=== PATIENT | female | born 1975 | race Caucasian/White ===

== ENCOUNTER 2018-04-20 16:57 | Emergency (ER) | payer MEDICAID, OTHER ==
[2018-04-20 17:24] VITALS: BMI 20.1
[2018-04-20 17:29] VITALS: RESP 18; TEMP 98.1
--- NOTE | 2018-04-20 18:34 | ED PDOC ---
Arrival/HPI - General Chief Complaint: Trauma Time Seen by Provider: 04/20/18 17:28 Historian: Patient - History of Present Illness Narrative History of Present Illness (Text): 04/20/18 18:34 42yo female with history of chronic neck and back pain present with complaint of upper back, left shoulder/wrist and ankle pain s/p trauma this evening. Patient states she fell when she climbed ontop of a chair to grab some thing at 1600 today. States she landed on her left side. States she did not take any pain medication today. Able to ambulate with a cane. Denies LOC, focal weakness, dizziness, urinary/fecal incontinence, saddle anesthesia, nausea, vomiting, headache, any other complaint. Past Medical History - Provider Review Nursing Documentation Reviewed: Yes - Infectious Disease Hx of Infectious Diseases: None - Reproductive Currently : No - Psychiatric Hx Substance Use: No Family/Social History - Physician Review Nursing Documentation Reviewed: Yes Family/Social History: Unknown Family HX Smoking Status: Never Smoked Hx Alcohol Use: No Hx Substance Use: No Allergies/Home Meds Allergies/Adverse Reactions: Allergies No Known Allergies Allergy (Verified 05/02/15 17:56) Home Medications: Home Meds Medication Instructions Recorded Confirmed RX: No Known Home Med 04/20/18 04/20/18 Review of Systems - Physician Review All systems were reviewed & negative as marked: Yes - Review of Systems Constitutional: Normal Eyes: Normal ENT: Normal Respiratory: Normal Cardiovascular: Normal Gastrointestinal: Normal Genitourinary Female: Normal Musculoskeletal: Arthralgias (LEft ankle/wrist/shoudler), Back Pain Skin: Normal Neurological: Normal Endocrine: Normal Hemo/Lymphatic: Normal Psychiatric: Normal Physical Exam Vital Signs Reviewed: Yes Vital Signs Temp Pulse Resp BP Pulse Ox 04/20/18 17:28 98.1 F 73 18 95/60 L 100 Temperature: Afebrile Blood Pressure: Normal Pulse: Regular Respiratory Rate: Normal Appearance: Positive for: Well-Appearing, Non-Toxic, Comfortable Pain Distress: None Mental Status: Positive for: Alert and Oriented X 3 - Systems Exam Head: Present: Atraumatic, Normocephalic Pupils: Present: PERRL Extroacular Muscles: Present: EOMI Conjunctiva: Present: Normal Mouth: Present: Moist Mucous Membranes Neck: Present: Normal Range of Motion Respiratory/Chest: Present: Clear to Auscultation, Good Air Exchange. No: Respiratory Distress, Accessory Muscle Use Cardiovascular: Present: Regular Rate and Rhythm, Normal S1, S2. No: Murmurs Abdomen: No: Tenderness, Distention, Peritoneal Signs Back: Present: Paraspinal Tenderness (LEft sided parathoracic tenderness). No: Midline Tenderness, Pain with Leg Raise Upper Extremity: Present: Normal ROM, NORMAL PULSES, Tenderness (Mild left proximal shoulder tenderness. LEft wrist tenderness), Neurovascularly Intact, Capillary Refill < 2s. No: Cyanosis, Edema, Swelling, Deformity Lower Extremity: Present: NORMAL PULSES, Normal ROM, Tenderness (Left ankle), Neurovascularly Intact. No: Edema, Swelling, Deformity Neurological: Present: GCS=15, CN II-XII Intact, Speech Normal Skin: Present: Warm, Dry, Normal Color. No: Rashes Psychiatric: Present: Alert, Oriented x 3, Normal Insight, Normal Concentration Medical Decision Making ED Course and Treatment: 04/22/18 01:44 PT presented to ED for stated history. she was neurologically intact Thoracic spine/Left shoulder/ankle xray - No acute finding Pt's pain was controlled in ED Result was DW the pt and she was DC home with NSAID and referred to ortho - RAD Interpretation Radiology Orders: 04/20/18 18:23 SHOULDER LEFT [RAD] Stat WRIST, LEFT 3 VIEWS [RAD] Stat 04/20/18 18:24 THORACIC SPINE [DORSAL (THORACIC) SPINE] [RAD] Stat 04/20/18 18:25 ANKLE LEFT 3 VIEWS ROUTINE [RAD] Stat Disposition/Present on Arrival - Present on Arrival Any Indicators Present on Arrival: No History of DVT/PE: No History of Uncontrolled Diabetes: No Urinary Catheter: No History of Decub. Ulcer: No History Surgical Site Infection Following: None - Disposition Have Diagnosis and Disposition been Completed?: Yes Diagnosis: Musculoskeletal pain Disposition: HOME/ ROUTINE Disposition Time: 19:55 Patient Plan: Discharge Condition: STABLE Discharge Instructions (ExitCare): Muscle and Bone Pain (DC) Additional Instructions: Follow up with your doctor Return to Emergency department for any new symptoms Referrals: Kirsty Davidson MD [Primary Care Provider] - Follow up with primary Calvin Rodgers MD [Staff Provider] - Follow up with primary Forms: [employer] (Irish)
[2018-04-20 20:35] VITALS: BP 107/64; PULSE 75; O2SAT 98
--- NOTE | 2018-04-21 10:18 | RAD ---
Date of service: 04/20/2018 PROCEDURE: Radiographs of the Left Shoulder HISTORY: shoulder pain s/p trauma COMPARISON: No prior. FINDINGS: BONES: Normal. No fracture. JOINTS: Normal. Glenohumeral and acromioclavicular joints preserved. No osteoarthritis. SOFT TISSUES: Normal. OTHER FINDINGS: None. IMPRESSION: Normal radiographs of the left shoulder.
--- NOTE | 2018-04-21 10:25 | RAD ---
Date of service: 04/20/2018 HISTORY: back pain s/p trauma COMPARISON: Comparison made with prior MRI of the thoracic spine 01/29/2016. FINDINGS: BONES: Alignment maintained. No fracture. DISC SPACES: Normal. Small marginal anterior osteophytes seen at several levels SOFT TISSUES: Normal. OTHER FINDINGS: None. IMPRESSION: No evidence of acute compression fracture nor retropulsed fragments.
--- NOTE | 2018-04-21 11:30 | RAD ---
Date of service: 04/20/2018 PROCEDURE: Left Ankle Radiographs. HISTORY: Ankle pain s/p trauma COMPARISON: None available. FINDINGS: BONES: Normal. No fracture. JOINTS: Normal. No osteoarthritis. Ankle mortise maintained. Talar dome intact SOFT TISSUES: Normal. OTHER FINDINGS: None. IMPRESSION: Normal left ankle radiographs.
--- NOTE | 2018-04-21 13:01 | RAD ---
Date of service: 04/20/2018 PROCEDURE: Left Wrist Radiographs. HISTORY: Wrist pain following trauma no evidence of acute COMPARISON: None. FINDINGS: BONES: Normal. No fracture. JOINTS: Normal. No dislocation. SOFT TISSUES: Normal. OTHER FINDINGS: None. IMPRESSION: No evidence of acute displaced fracture nor dislocation. If symptoms persist or occult fracture suspected clinically recommend repeat radiographs in 5-10 days as most fractures should become radiographically evident in this timeframe.
== END 2018-04-20 20:33 | disposition home or self-care (01) ==
LOC: ED 16:57
DX: M79.18 Myalgia, other site (principal)
CPT/HCPCS: 72070; 73030; 73110; 73610; 81025; 96372; 99284; J1885

== ENCOUNTER 2018-06-07 10:40 | Outpatient (CLI) | payer MEDICAID | END 2018-06-07 10:41 | disposition home or self-care (01) | LOC: RAD 10:40 | DX: G44.1 Vascular headache, not elsewhere classified (principal); R42 Dizziness and giddiness; G60.9 Hereditary and idiopathic neuropathy, unspecified; G40.909 Epilepsy, unspecified, not intractable, without status epilepticus ==

== ENCOUNTER 2018-06-27 13:51 | Observation (INO) | payer MEDICAID ==
--- NOTE | 2018-06-27 15:26 | ED PDOC ---
Arrival/HPI - General Chief Complaint: Upper Extremity Problem/Injury Time Seen by Provider: 06/27/18 14:05 Historian: Patient - History of Present Illness Narrative History of Present Illness (Text): 42 year old F with pmh of depression, chronic neck and back pain presents with chief complaint of left arm pain. She notes that while sitting in the emergency department she has had LUE weakness and now paralysis. Patient reports paralysis occurred months before and spontaneously resolved. She notes a history of chronic neck issues without previous surgery. Patient denies any trauma, fall or neck injury. Patient denies any fevers, chills, headache, dizziness, chest pain, shortness of breath, dyspnea on exertion, cough, diaphoresis, abdominal pain, nausea, vomiting, diarrhea, back pain, neck pain, or any other complaint. Time/Duration: Prior to Arrival Symptom Onset: Sudden Symptom Course: Unchanged Activities at Onset: Light Context: Home Past Medical History - Provider Review Nursing Documentation Reviewed: Yes - Infectious Disease Hx of Infectious Diseases: None - Psychiatric Hx Substance Use: No - Anesthesia Hx Anesthesia: Yes Hx Anesthesia Reactions: No Hx Malignant Hyperthermia: No Family/Social History - Physician Review Nursing Documentation Reviewed: Yes Family/Social History: Unknown Family HX Smoking Status: Never Smoked Hx Alcohol Use: No Hx Substance Use: No Allergies/Home Meds Allergies/Adverse Reactions: Allergies No Known Allergies Allergy (Verified 05/02/15 17:56) Home Medications: Home Meds Medication Instructions Recorded Confirmed No Known Home Med 04/20/18 04/20/18 Review of Systems - Physician Review All systems were reviewed & negative as marked: Yes - Review of Systems Constitutional: absent: Fevers Eyes: absent: Vision Changes, Photophobia ENT: absent: TMJ Pain, Sore Throat, Rhinorrhea, Epistaxis Respiratory: absent: SOB, Cough Cardiovascular: absent: Chest Pain, Palpitations, Syncope Gastrointestinal: absent: Abdominal Pain, Diarrhea, Nausea, Vomiting Musculoskeletal: absent: Arthralgias, Back Pain, Myalgias Skin: absent: Rash Neurological: absent: Headache, Dizziness Physical Exam Vital Signs Reviewed: Yes Temperature: Afebrile Blood Pressure: Normal Pulse: Regular Respiratory Rate: Normal Appearance: Positive for: Well-Appearing, Non-Toxic Pain Distress: None Mental Status: Positive for: Alert and Oriented X 3 - Systems Exam Head: Present: Atraumatic, Normocephalic Pupils: Present: PERRL. No: Sluggish Extroacular Muscles: Present: EOMI Conjunctiva: Present: Normal Ears: Present: Normal, NORMAL TM. No: Erythema Mouth: Present: Moist Mucous Membranes Pharnyx: Present: Normal. No: ERYTHEMA, EXUDATE Nose (External): Present: Atraumatic Nose (Internal): Present: Normal Inspection Neck: Present: Normal Range of Motion. No: Meningeal Signs, MIDLINE TENDERNESS, Paraspinal Tenderness Respiratory/Chest: Present: Clear to Auscultation, Good Air Exchange. No: Respiratory Distress, Accessory Muscle Use Cardiovascular: Present: Regular Rate and Rhythm, Normal S1, S2. No: Murmurs Abdomen: No: Tenderness, Distention, Peritoneal Signs Back: Present: Normal Inspection. No: CVA Tenderness, Midline Tenderness, Paraspinal Tenderness Upper Extremity: Present: Normal Inspection, Normal ROM, NORMAL PULSES, Neurovascularly Intact, Capillary Refill < 2s, Other (left upper extremity weakness, 3/5. When prompted to move LUE, pt states she is unable to, when raised however pt is able to anti-grav without issue). No: Cyanosis, Edema Lower Extremity: Present: Normal Inspection, NORMAL PULSES. No: Edema, CALF TENDERNESS Neurological: Present: GCS=15, CN II-XII Intact, Speech Normal Skin: Present: Warm, Dry, Normal Color. No: Rashes Psychiatric: Present: Alert, Oriented x 3, Normal Insight, Normal Concentration Medical Decision Making ED Course and Treatment: 06/27/18 15:25 Impression: 42 year old F presents with chief complaint of L arm pain followed by paralysis in the emergency department. NIHSS 1. 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 No fall or trauma. No chest pain. No midline cervical tenderness or paracervical pain. Code stroke called however given sudden onset while in ER. No unilateral LE weakness. No slurred speech. Plan: -- Labs -- CT Head w/o contrast -- Stroke team Consult -- CXR -- Reassess and disposition Prior Visits: Notes and results from previous visits were reviewed. Progress Notes: 06/27/18 15:58 EKG shows NSR at 78 BPM, No STEMI. Interpreted by me. 06/27/18 16:41 Pt noted to be moving L arm in NAD CTH and CT c-spine unremarkable labs largely unremarkable appreciate consult w/ Dr. Toribio: likely MRI C spine, obs for likely tia 06/27/18 17:09 pt in NAD appreciate consult w/ Dr. Rolle: accepted to obs - RAD Interpretation Radiology Orders: 06/27/18 15:20 HEAD W/O (CODE STROKE) [CT] Stat CHEST PORTABLE [RAD] Stat 06/27/18 15:22 CERVICAL SPINE W/O CONTRAST [CT] Stat - Medication Orders Current Medication Orders: Sodium Chloride (Sodium Chloride 0.9%) 1,000 mls @ 100 mls/hr IV .Q10H [facility] NIHSS Scale ([place]) Time Performed: 15:20 - How Severe is the Stoke Baseline Level of Consciousness: 0=Alert LOC to Questions: 0=Both comments correct LOC to commands: 0=Obeys both correctly Best Gaze: 0=Normal Visual: 0=No visual loss Facial: 0=Normal Motor Arm - Left: 1=Drift noted before 10 sec Motor Arm - Right: 0=No drift Motor Leg - Left: 0=No drift Motor Leg - Right: 0=No drift Limb Ataxia: 0=Absent Sensory: 0=Normal Best Language: 0=No aphasia Dysarthia: 0=Normal articulation Extinction & Inattention (Neglect): 0=Normal, no object Score: 1 Risk Level: Minor Stroke Risk - Scribe Statement The provider has reviewed the documentation as recorded by the Dalia Salomon All medical record entries made by the Inocencioibe were at my direction and personally dictated by me. I have reviewed the chart and agree that the record accurately reflects my personal performance of the history, physical exam, medical decision making, and the department course for this patient. I have also personally directed, reviewed, and agree with the discharge instructions and disposition. Disposition/Present on Arrival - Present on Arrival Any Indicators Present on Arrival: No History of DVT/PE: No History of Uncontrolled Diabetes: No Urinary Catheter: No History of Decub. Ulcer: No History Surgical Site Infection Following: None - Disposition Have Diagnosis and Disposition been Completed?: Yes Diagnosis: LUE weakness Disposition Time: 17:09 Patient Problems: Current Active Problems Problem Status Onset LUE weakness Acute Condition: STABLE
--- NOTE | 2018-06-27 15:39 | CT ---
Date of service: 06/27/2018 PROCEDURE: CT HEAD WITHOUT CONTRAST. HISTORY: Code Stroke COMPARISON: None available. TECHNIQUE: Axial computed tomography images were obtained through the head/brain without intravenous contrast. Radiation dose: Total exam DLP = 664.55 mGy-cm. This CT exam was performed using one or more of the following dose reduction techniques: Automated exposure control, adjustment of the mA and/or kV according to patient size, and/or use of iterative reconstruction technique. FINDINGS: HEMORRHAGE: No intracranial hemorrhage. BRAIN: No mass effect or edema. No atrophy or chronic microvascular ischemic changes. VENTRICLES: Unremarkable. No hydrocephalus. CALVARIUM: Unremarkable. PARANASAL SINUSES: Unremarkable as visualized. No significant inflammatory changes. MASTOID AIR CELLS: Unremarkable as visualized. No inflammatory changes. OTHER FINDINGS: None. IMPRESSION: No acute findings
--- NOTE | 2018-06-27 15:55 | CT ---
Date of service: 06/27/2018 PROCEDURE: CT Cervical Spine without contrast HISTORY: Left arm weakness and Pain. No history of recent/ related trauma provided. COMPARISON: 05/02/2015 CT cervical spine. 01/29/2016 MRI cervical spine. TECHNIQUE: Axial computed tomography images were obtained of the cervical spine without the use of intravenous contrast. Coronal and sagittal reformatted images were created and reviewed. Radiation dose: Total exam DLP = 293.95 mGy-cm. This CT exam was performed using one or more of the following dose reduction techniques: Automated exposure control, adjustment of the mA and/or kV according to patient size, and/or use of iterative reconstruction technique. FINDINGS: VERTEBRAE: No fracture. Normal alignment. No destructive bony lesion. DISCS/SPINAL CANAL/NEURAL FORAMINA: No significant central canal or neural foraminal stenosis. Discs heights are grossly preserved. PARASPINAL SOFT TISSUES: Unremarkable. OTHER FINDINGS: None. IMPRESSION: No significant or acute findings to account for/ related to the clinical presentation. No significant interval change compared to the prior examination(s).
[2018-06-27 16:05] LABS: BASO # 0.02 K/mm3 (0.0-2.0); BASO % 0.4 % (0.0-3.0); EOS % 0.6 % (1.5-5.0); HEMOGLOBIN 13.4 g/dL (12.0-16.0); LYMPH # 2.3 (1.2-3.4); LYMPH % 49.3 % (22.0-35.0); MEAN CELL VOLUME 93.3 fl (80.0-105.0); MEAN CORPUSCULAR HEMOGLOBIN 31.2 pg (25.0-35.0); MEAN CORPUSCULAR HGB CONC 33.4 g/dl (31.0-37.0); MEAN PLATELET VOLUME 9.7 fl (7.0-11.0); MONO # 0.4 (0.1-0.6); MONO % 8.5 % (1.0-6.0); RBC 4.3 10^6/uL (3.5-6.1); RED CELL DISTRIBUTION WIDTH 11.9 % (11.5-14.5); WHITE BLOOD COUNT 4.7 10^3/uL (4.5-11.0)
[2018-06-27 16:13] LABS: INR 1.12; PARTIAL THROMBOPLASTIN TIME 36.1 Seconds (26.9-38.3); PROTHROMBIN TIME 12.4 SECONDS (9.4-12.5)
[2018-06-27 16:19] LABS: ALB/GLOB RATIO 1.2 (1.1-1.8); ALBUMIN 4.2 g/dL (3.0-4.8); BLOOD UREA NITROGEN 9 mg/dL (7-21); CALCIUM 9.7 mg/dL (8.4-10.5); GFR NON-AFRICAN AMERICAN > 60; HDL CHOLESTEROL 57 mg/dL (29-60)
--- NOTE | 2018-06-27 16:25 | RAD ---
Date of service: 06/27/2018 HISTORY: Code Stroke COMPARISON: No prior. FINDINGS: LUNGS: No active pulmonary disease. PLEURA: No significant pleural effusion identified, no pneumothorax apparent. CARDIOVASCULAR: No atherosclerotic calcification present Normal. OSSEOUS STRUCTURES: No significant abnormalities. VISUALIZED UPPER ABDOMEN: Normal. OTHER FINDINGS: None. IMPRESSION: No active disease.
[2018-06-27 16:30] LABS: LDL CHOLESTEROL 93 mg/dL (0-129)
[2018-06-27 16:33] LABS: TROPONIN I < 0.01 ng/mL
[2018-06-27 16:39] LABS: ALT/SGPT 17 U/L (7-56); AST/SGOT 31 U/L (14-36)
--- NOTE | 2018-06-27 17:07 | CARD ---
APPROVED REPORT Date of service: 06/27/2018 EKG Measurement Heart [id number] CT [id number] <Conclusion> Normal sinus rhythm Normal ECG
[2018-06-27] MEDS: Sodium Chloride 0.9% 1,000 ML IV SCH (17:30)
--- NOTE | 2018-06-27 20:06 | CP.PCM.HP ---
<Moy Morfin - Last Filed: 06/27/18 20:18> History of Present Illness - History of Present Illness History of Present Illness: PGY-1 Medicine H&P for Dr. Baugh CC: Left arm weakness Patient is a 42 year old female with a past medical history of anxiety, depression, chronic neck and back pain presenting with left arm weakness that started this afternoon while she was sitting at home. She reports that this has happened before months ago and spontaneously resolved. She notes a history of chronic neck issues without previous surgery. Patient denies any trauma, fall, or neck injury. Patient further denies any fevers, chills, headache, dizziness, blurry vision, changes in vision or hearing, chest pain, shortness of breath, dyspnea on exertion, cough, diaphoresis, abdominal pain, nausea, vomiting, diarrhea, back pain, neck pain, or urinary symptoms. Patient was a code stroke in the ED. 12 system ROS reviewed and negative except mentioned in HPI. PMHx: Depression, anxiety, chronic neck and back pain PSHx: denies Allergies: NKDA Family Hx: Mother has HTN and DM-2. Father had HTN and of heart disease. Social: Denies tobacco, alcohol, or drug use. Currently unemployed and on disability. Lives at home with son. Medications: See [facility] Pharmacy: [facility] [place] PMD: Dr. Kirsty Davidson Present on Admission - Present on Admission Any Indicators Present on Admission: No History of DVT/PE: No History of Uncontrolled Diabetes: No Urinary Catheter: No Decubitus Ulcer Present: No Past Patient History - Infectious Disease Hx of Infectious Diseases: None - Past Social History Smoking Status: Never Smoked - PSYCHIATRIC Hx Substance Use: No - SURGICAL HISTORY Hx Surgeries: No - ANESTHESIA Hx Anesthesia: Yes Hx Anesthesia Reactions: No Hx Malignant Hyperthermia: No Meds Allergies/Adverse Reactions: Allergies Allergy/AdvReac Type Severity Reaction Status Date / Time No Known Allergies Allergy Verified 05/02/15 17:56 Physical Exam - Constitutional Appears: Well, Non-toxic, No Acute Distress - Head Exam Head Exam: ATRAUMATIC, NORMAL INSPECTION - Eye Exam Eye Exam: EOMI, Normal appearance - ENT Exam ENT Exam: Mucous Membranes Moist - Neck Exam Neck exam: Positive for: Normal Inspection - Respiratory Exam Respiratory Exam: Clear to Auscultation Bilateral. absent: Rales, Rhonchi, Wheezes, Respiratory Distress - Cardiovascular Exam Cardiovascular Exam: REGULAR RHYTHM, +S1, +S2. absent: Gallop, Rubs, Systolic Murmur - GI/Abdominal Exam GI & Abdominal Exam: Normal Bowel Sounds, Soft. absent: Tenderness - Extremities Exam Extremities exam: Negative for: calf tenderness, pedal edema - Back Exam Back exam: NORMAL INSPECTION. absent: CVA tenderness (L), CVA tenderness (R), paraspinal tenderness - Neurological Exam Neurological exam: Alert, CN II-XII Intact, Oriented x3 Additional comments: Muscle strength 1/5 in LUE, sensations not intact, capillary refill normal, radial pulse palpable. Muscle strength 5/5 and sensations intact in all other extremities. - Psychiatric Exam Psychiatric exam: Normal Affect, Normal Mood - Skin Skin Exam: Dry, Intact, Normal Color, Warm Results - Vital Signs Recent Vital Signs: Last Vital Signs Temp Pulse 79 06/27/18 18:08 Resp 20 06/27/18 18:08 BP 102/72 06/27/18 18:08 Pulse Ox 99 06/27/18 18:08 - Labs Result Diagrams: 06/27/18 15:48 06/27/18 15:48 Labs: Laboratory Results - last 24 hr 06/27/18 06/27/18 06/27/18 15:48 15:48 15:48 WBC 4.7 RBC 4.30 Hgb 13.4 Hct 40.1 MCV 93.3 MCH 31.2 MCHC 33.4 RDW 11.9 Plt Count 251 MPV 9.7 Neut % (Auto) 41.2 L Lymph % (Auto) 49.3 H [place] % (Auto) 8.5 H Eos % (Auto) 0.6 L Baso % (Auto) 0.4 Lymph # (Auto) 2.3 [place] # (Auto) 0.4 Eos # (Auto) 0.0 Baso # (Auto) 0.02 Absolute Neuts (auto) 1.94 PT 12.4 INR 1.12 APTT 36.1 Sodium 139 Potassium 4.2 Chloride 103 Carbon Dioxide 27 Anion Gap 14 BUN 9 Creatinine 0.7 Est GFR ( Amer) > 60 Est GFR (Non-Af Amer) > 60 Random Glucose 70 Calcium 9.7 Total Bilirubin 0.4 AST 31 ALT 17 Alkaline Phosphatase 42 Troponin I < 0.01 Total Protein 7.7 Albumin 4.2 Globulin 3.4 Albumin/Globulin Ratio 1.2 Triglycerides 117 Cholesterol 164 LDL Cholesterol Direct 93 HDL Cholesterol 57 Assessment & Plan - Assessment and Plan (Free Text) Assessment: Patient is a 42 year old female with a past medical history of anxiety, depression, chronic neck and back pain presenting with left arm weakness. Patient was a code stroke in ED. Plan: Left arm weakness - Rule out CVA vs TIA vs MS vs somatic symptom disorder vs malingering - CT head: No acute findings - EKG: NSR @ 78 bpm, no ST changes - Cervical spine CT: No acute findings - NIHSS score: 1 - Speech and swallow evaluation - Neurology consulted, Dr. Toribio - Psychiatry consulted, Dr. Meeks - Lipid panel: WNL - Follow up Vit B12, Folate, TSH, Free T4, HbA1C Hx of depression and anxiety - Xanax 1mg PO TID - Amitriptyline 50mg BID - Lamotrigine 25mg PO QD - Duloxetine 60mg PO QD - Seroquel 50mg PO HS - Hold home Arava - Psychiatry consulted, Dr. Meeks Prophylaxis: - DVT: SCD's Patient seen and case discussed with attending, Dr. Baugh. Moy Morfin, PGY-1 <Delilah Baugh - Last Filed: 06/28/18 00:58> Results - Vital Signs Recent Vital Signs: Last Vital Signs Temp 98.5 F 06/27/18 20:00 Pulse 75 06/27/18 20:00 Resp 18 06/27/18 21:04 BP 117/76 06/27/18 20:00 Pulse Ox 100 06/27/18 20:00 - Labs Result Diagrams: 06/27/18 15:48 06/27/18 15:48 Labs: Laboratory Results - last 24 hr 06/27/18 06/27/18 06/27/18 15:48 15:48 15:48 WBC 4.7 RBC 4.30 Hgb 13.4 Hct 40.1 MCV 93.3 MCH 31.2 MCHC 33.4 RDW 11.9 Plt Count 251 MPV 9.7 Neut % (Auto) 41.2 L Lymph % (Auto) 49.3 H [place] % (Auto) 8.5 H Eos % (Auto) 0.6 L Baso % (Auto) 0.4 Lymph # (Auto) 2.3 [place] # (Auto) 0.4 Eos # (Auto) 0.0 Baso # (Auto) 0.02 Absolute Neuts (auto) 1.94 PT 12.4 INR 1.12 APTT 36.1 Sodium 139 Potassium 4.2 Chloride 103 Carbon Dioxide 27 Anion Gap 14 BUN 9 Creatinine 0.7 Est GFR ( Amer) > 60 Est GFR (Non-Af Amer) > 60 Random Glucose 70 Hemoglobin A1c Calcium 9.7 Total Bilirubin 0.4 AST 31 ALT 17 Alkaline Phosphatase 42 Troponin I < 0.01 Total Protein 7.7 Albumin 4.2 Globulin 3.4 Albumin/Globulin Ratio 1.2 Triglycerides 117 Cholesterol 164 LDL Cholesterol Direct 93 HDL Cholesterol 57 06/27/18 15:48 WBC RBC Hgb Hct MCV MCH MCHC RDW Plt Count MPV Neut % (Auto) Lymph % (Auto) [place] % (Auto) Eos % (Auto) Baso % (Auto) Lymph # (Auto) [place] # (Auto) Eos # (Auto) Baso # (Auto) Absolute Neuts (auto) PT INR APTT Sodium Potassium Chloride Carbon Dioxide Anion Gap BUN Creatinine Est GFR ( Amer) Est GFR (Non-Af Amer) Random Glucose Hemoglobin A1c 5.1 Calcium Total Bilirubin AST ALT Alkaline Phosphatase Troponin I Total Protein Albumin Globulin Albumin/Globulin Ratio Triglycerides Cholesterol LDL Cholesterol Direct HDL Cholesterol Attending/Attestation - Attestation I have personally seen and examined this patient.: Yes I have fully participated in the care of the patient.: Yes I have reviewed all pertinent clinical information: Yes Notes (Text): 06/28/18 00:57 Patient was seen when she was in bed # 365 -2. Agree with history , physical examination, assessment and plan.
[2018-06-27 21:35] VITALS: BMI 24.6
[2018-06-27] MEDS ORDERED: Non Formulary Medication (Quetiapine [Seroquel] 50 MG) PO SCH (22:00)
[2018-06-28 06:47] LABS: BASO # 0.02 K/mm3 (0.0-2.0); BASO % 0.5 % (0.0-3.0); EOS # 0.1 (0.0-0.7); EOS % 1.6 % (1.5-5.0); HEMOGLOBIN 11.2 g/dL (12.0-16.0); LYMPH % 69.7 % (22.0-35.0); MEAN CELL VOLUME 93.5 fl (80.0-105.0); MEAN CORPUSCULAR HEMOGLOBIN 30.4 pg (25.0-35.0); MEAN CORPUSCULAR HGB CONC 32.6 g/dl (31.0-37.0); MEAN PLATELET VOLUME 9.1 fl (7.0-11.0); MONO # 0.3 (0.1-0.6); RBC 3.68 10^6/uL (3.5-6.1); RED CELL DISTRIBUTION WIDTH 11.9 % (11.5-14.5); WHITE BLOOD COUNT 4.3 10^3/uL (4.5-11.0)
[2018-06-28 07:14] LABS: FREE T4 1.24 ng/dL (0.78-2.19)
[2018-06-28 07:42] LABS: ALB/GLOB RATIO 1.2 (1.1-1.8); ALBUMIN 3.4 g/dL (3.0-4.8); ALT/SGPT 18 U/L (7-56); AST/SGOT 23 U/L (14-36); BLOOD UREA NITROGEN 7 mg/dL (7-21); CALCIUM 8.4 mg/dL (8.4-10.5); GFR NON-AFRICAN AMERICAN > 60
[2018-06-28 08:22] VITALS: RESP 20
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
--- NOTE | 2018-06-28 12:44 | CP.PCM.PN ---
<Delmar Carlson - Last Filed: 06/28/18 13:07> Subjective - Date & Time of Evaluation Date of Evaluation: 06/28/18 Time of Evaluation: 11:00 - Subjective Subjective: INTERNAL MEDICINE PROGRESS NOTE FOR DR. JENNIFER Carlson PGY1 Pt seen and examined at bedside this am. No acute events overnight. Pt continues to report L hand weakness & numbness. She reports L leg is also weak. She reports this started yesterday evening. She denies any visual changes, urinary/bowel incontinence. She is tolerating her diet. She reports she walks without difficulty. She denies fevers, chills, chest pain, palpitations, shortness of breath, nausea, vomiting, constipation, diarrhea, dysuria. Objective - Vital Signs/Intake and Output Vital Signs (last 24 hours): Temp Pulse Resp BP Pulse Ox 97.8 F 74 20 95/60 L 99 06/28/18 08:22 06/28/18 08:22 06/28/18 08:22 06/28/18 08:22 06/28/18 08:22 Intake and Output: 06/28/18 06/28/18 06:59 18:59 Intake Total 120 Balance 120 - Medications Medications: Current Medications Alprazolam (Xanax) 1 mg PO TID [facility]; Protocol Last Admin: 06/28/18 10:45 Dose: 1 mg Amitriptyline HCl (Elavil) 50 mg PO BID [facility] Last Admin: 06/28/18 10:45 Dose: 50 mg Aspirin (Aspirin Chewable) 81 mg PO DAILY [facility] Last Admin: 06/28/18 10:45 Dose: 81 mg Duloxetine HCl (Cymbalta) 60 mg PO DAILY [facility] Last Admin: 06/28/18 10:45 Dose: 60 mg Sodium Chloride (Sodium Chloride 0.9%) 1,000 mls @ 100 mls/hr IV .Q10H [facility] Last Admin: 06/27/18 17:30 Dose: 100 mls/hr Lamotrigine (Lamictal) 25 mg PO BID [facility]; Protocol Last Admin: 06/28/18 10:45 Dose: 25 mg Quetiapine Fumarate (Seroquel) 50 mg PO HS [facility] Last Admin: 06/27/18 21:48 Dose: 50 mg - Labs Labs: 06/28/18 06:10 06/28/18 06:10 PT 12.4 SECONDS (9.4-12.5) 06/27/18 15:48 INR 1.12 06/27/18 15:48 APTT 36.1 Seconds (26.9-38.3) 06/27/18 15:48 - Constitutional Appears: Well, Non-toxic, No Acute Distress - Head Exam Head Exam: ATRAUMATIC, NORMAL INSPECTION - Eye Exam Eye Exam: EOMI, Normal appearance - ENT Exam ENT Exam: Mucous Membranes Moist - Neck Exam Neck exam: Positive for: Normal Inspection - Respiratory Exam Respiratory Exam: Clear to Auscultation Bilateral. absent: Rales, Rhonchi, Wheezes, Respiratory Distress - Cardiovascular Exam Cardiovascular Exam: REGULAR RHYTHM, +S1, +S2. absent: Gallop, Rubs, Systolic Murmur - GI/Abdominal Exam GI & Abdominal Exam: Normal Bowel Sounds, Soft. absent: Tenderness - Extremities Exam Extremities exam: Negative for: calf tenderness, pedal edema - Back Exam Back exam: NORMAL INSPECTION. absent: CVA tenderness (L), CVA tenderness (R), paraspinal tenderness - Neurological Exam Neurological exam: Alert, CN II-XII Intact, Oriented x3 Additional comments: Muscle strength 1/5 in LUE, sensations not intact, capillary refill normal, radial pulse palpable. Muscle strength 5/5 and sensations intact in all other extremities. - Psychiatric Exam Psychiatric exam: Normal Affect, Normal Mood - Skin Skin Exam: Dry, Intact, Normal Color, Warm Assessment and Plan - Assessment and Plan (Free Text) Assessment: 42 year old female with a past medical history of anxiety, depression, chronic neck and back pain presenting with left arm weakness. Patient was a code stroke in ED. Plan: Left arm weakness - Rule out CVA vs TIA vs MS vs somatic symptom disorder vs malingering - CT head: No acute findings, EKG: NSR @ 78 bpm, no ST changes, Cervical spine CT: No acute findings - TSH: 3.62, FT4: 1.24, Hgb A1c: 5.1. Lipid Panel wnl - MRI brain w/o contrast, spinal canal cervical w/o contrast, echocardiogram pending. - continue aspirin 81mg - Neurology consulted, Dr. Toribio. Pending eval & recs - Psychiatry consulted, Dr. Meeks Hx of depression and anxiety - Xanax 1mg PO TID - Amitriptyline 50mg BID - Lamotrigine 25mg PO QD - Duloxetine 60mg PO QD - Seroquel 50mg PO HS - Hold home Arava - Psychiatry consulted, Dr. Meeks Prophylaxis: - DVT: Hep/pepcid Case discussed with attending physician, Dr. Jennifer Carlson PGY1 <Erich Yoo - Last Filed: 06/28/18 15:58> Objective - Vital Signs/Intake and Output Vital Signs (last 24 hours): Temp Pulse Resp BP Pulse Ox 97.8 F 83 20 95/60 L 99 06/28/18 08:22 06/28/18 10:00 06/28/18 08:22 06/28/18 08:22 06/28/18 08:22 Intake and Output: 06/28/18 06/28/18 06:59 18:59 Intake Total 120 Balance 120 - Medications Medications: Current Medications Alprazolam (Xanax) 1 mg PO TID [facility]; Protocol Last Admin: 06/28/18 14:51 Dose: 1 mg Amitriptyline HCl (Elavil) 50 mg PO BID [facility] Last Admin: 06/28/18 10:45 Dose: 50 mg Aspirin (Aspirin Chewable) 81 mg PO DAILY [facility] Last Admin: 06/28/18 10:45 Dose: 81 mg Duloxetine HCl (Cymbalta) 60 mg PO DAILY [facility] Last Admin: 06/28/18 10:45 Dose: 60 mg Famotidine (Pepcid) 40 mg PO HS [facility] Heparin Sodium (Porcine) (Heparin) 5,000 units SC Q12 [facility]; Protocol Last Admin: 06/28/18 14:51 Dose: 5,000 units Sodium Chloride (Sodium Chloride 0.9%) 1,000 mls @ 100 mls/hr IV .Q10H [facility] Last Admin: 06/27/18 17:30 Dose: 100 mls/hr Lamotrigine (Lamictal) 25 mg PO BID [facility]; Protocol Last Admin: 06/28/18 10:45 Dose: 25 mg Quetiapine Fumarate (Seroquel) 50 mg PO HS [facility] Last Admin: 06/27/18 21:48 Dose: 50 mg - Labs Labs: 06/28/18 06:10 06/28/18 06:10 PT 12.4 SECONDS (9.4-12.5) 06/27/18 15:48 INR 1.12 06/27/18 15:48 APTT 36.1 Seconds (26.9-38.3) 06/27/18 15:48 Attending/Attestation - Attestation I have personally seen and examined this patient.: Yes I have fully participated in the care of the patient.: Yes I have reviewed all pertinent clinical information, including history, physical exam and plan: Yes Notes (Text): Patient seen and examined with the residents, agree with above. Noted to have LUE motor weakness - 1/5 on neuro exam. States her LLE weakness resolved. Interesting case given patient has had similar symptoms in the past with ne gative workup. No optic neuritis. Etiology including Right sided CVA vs Somatic symptom disorder vs malingering vs Conversion disorder. MRI brain results pending. Neuro following. Will get input from [facility] on their expert opinion. If MRI brain showing no infarct, will not need statin therapy. Order for PT/OT evaluation.
--- NOTE | 2018-06-28 14:19 | MRI ---
Date of service: 06/28/2018 PROCEDURE: MRI BRAIN WITHOUT CONTRAST HISTORY: left leg and left arm weakness COMPARISON: 06/07/2018 TECHNIQUE: Multiplanar, multisequence MR images of the brain were obtained without intravenous contrast enhancement. FINDINGS: HEMORRHAGE: As noted on the previous study there is a small focus of hemosiderin deposition adjacent to the left frontal horn. This is unchanged and of doubtful significance. DWI: No evidence of an acute or early subacute infarction. BRAIN PARENCHYMA: No mass effect or edema. No atrophy or chronic microvascular ischemic changes. VENTRICLES: Unremarkable. No hydrocephalus. CRANIUM: Unremarkable. ORBITS: Grossly unremarkable. PARANASAL SINUSES/MASTOIDS: Clear VASCULAR SYSTEM: Skull base flow voids intact. OTHER FINDINGS: None. IMPRESSION: No acute intracranial findings
--- NOTE | 2018-06-28 14:25 | MRI ---
Date of service: 06/28/2018 PROCEDURE: MR CERVICAL SPINE WITHOUT CONTRAST HISTORY: left upper extremity and lower extremity weakness COMPARISON: 01/29/2016 TECHNIQUE: Multiecho multiplanar sequences were performed through the cervical spine without the use of intravenous contrast. FINDINGS: Normal lordotic curvature. Craniocervical junction unremarkable. Vertebral body heights preserved. No marrow signal abnormality. Normal cervical cord. No paraspinal abnormality. C2-C3: No disc herniation, spinal canal stenosis or neural foraminal narrowing. C3-C4: No disc herniation, spinal canal stenosis or neural foraminal narrowing. C4-C5: No disc herniation, spinal canal stenosis or neural foraminal narrowing. Mild disc bulge and degeneration C5-C6: No disc herniation, spinal canal stenosis or neural foraminal narrowing. Mild disc degeneration C6-C7: Small central disc protrusion at C6-7. Unchanged C7-T1: No disc herniation, spinal canal stenosis or neural foraminal narrowing. OTHER FINDINGS: None. IMPRESSION: Small central disc protrusion at C6-7. Unchanged
[2018-06-28 14:38] LABS: FOLATE > 20.0 ng/mL
--- NOTE | 2018-06-28 14:46 | CARD ---
APPROVED REPORT Date of service: 06/28/2018 EXAM: Two-dimensional and M-mode echocardiogram with Doppler and color Doppler. INDICATION CVA/TIA 2D DIMENSIONS Left Atrium (2D)3.3 (1.6-4.0cm)IVSd1.0 (0.7-1.1cm) LVDd4.0 (3.9-5.9cm)PWd0.9 (0.7-1.1cm) LVDs3.2 (2.5-4.0cm)FS (%) 20.5 % LVEF (%)42.4 (>50%) M-Mode DIMENSIONS Aortic Root2.70 (2.2-3.7cm) Aortic Valve AoV Peak Xpmflbcx815.0cm/[place] Peak GR.6mmHg Mitral Valve MV E Eobvczzd56.5cm/sMV A Tdqafffy93.2cm/sE/A ratio1.3 TDI Lateral E' Peak V15.40cm/sMedial E' Peak V17.10cm/sE/Lateral E'5.0 E/Medial E'4.5 Tricuspid Valve TR Peak [id number]/sRAP [id number] Peak Gr.5mmHg [id number] <Conclusion> Normal chamber size. Mild LV dysfunction with global hypokinesis. Mild tricuspid regurgitation. No obvious cardiac source of embolus noted. If clinical suspicion is high, consider transesophageal echocardiography.
[2018-06-28] MEDS: Sodium Chloride 0.9% 1,000 ML IV SCH (16:33)
[2018-06-29 06:42] LABS: BASO # 0.02 K/mm3 (0.0-2.0); BASO % 0.5 % (0.0-3.0); EOS # 0.1 (0.0-0.7); EOS % 2.7 % (1.5-5.0); HEMOGLOBIN 10.8 g/dL (12.0-16.0); LYMPH # 2.4 (1.2-3.4); MEAN CELL VOLUME 94.9 fl (80.0-105.0); MEAN CORPUSCULAR HEMOGLOBIN 30.6 pg (25.0-35.0); MEAN CORPUSCULAR HGB CONC 32.2 g/dl (31.0-37.0); MEAN PLATELET VOLUME 9.3 fl (7.0-11.0); MONO # 0.4 (0.1-0.6); MONO % 9.6 % (1.0-6.0); RBC 3.53 10^6/uL (3.5-6.1); RED CELL DISTRIBUTION WIDTH 12.2 % (11.5-14.5); WHITE BLOOD COUNT 3.6 10^3/uL (4.5-11.0)
[2018-06-29 06:43] LABS: ALB/GLOB RATIO 1.2 (1.1-1.8); ALBUMIN 3.4 g/dL (3.0-4.8); ALT/SGPT 15 U/L (7-56); AST/SGOT 21 U/L (14-36); BLOOD UREA NITROGEN 7 mg/dL (7-21); CALCIUM 8.2 mg/dL (8.4-10.5); GFR NON-AFRICAN AMERICAN > 60
[2018-06-29 08:27] VITALS: BP 98/61; TEMP 97.6; O2SAT 97
[2018-06-29 11:50] VITALS: PULSE 80
--- NOTE | 2018-06-29 16:42 | CP.PCM.DIS ---
<Delmar Carlson - Last Filed: 06/29/18 16:51> Provider - Provider Date of Admission: 06/27/18 17:06 Attending physician: Frederick Rolle MD Primary care physician: Kirsty Davidson MD Consults: 06/27/18 15:20 Stroke Team Consult Stat Comment: Consulting Provider: Neurohospitalist Consulting Physician: NEUROHOSP Neurohospitalist for Consult: Virgil Shaver Neurohospitalist for Consult: Jami Toribio Reason for Consult: L arm weak 06/27/18 19:56 Physician Consult Routine Comment: Consulting Provider: Jami Toribio Consulting Physician: Jami Toribio Reason for Consult: R/o CVA vs MS 06/28/18 14:42 Physician Consult Routine Comment: Consulting Provider: Ginger Gilmore Consulting Physician: Ginger Gilmore Reason for Consult: hx of anxiety/depression Time Spent in preparation of Discharge (in minutes): 45 Diagnosis - Discharge Diagnosis (1) Anxiety Status: Chronic (2) Depression Status: Chronic (3) Ejection fraction < 50% Status: Chronic (4) LUE weakness Status: Resolved (5) Psychosomatic disease Status: Resolved Hospital Course - Lab Results Lab Results: Most Recent Lab Values WBC 3.6 10^3/uL (4.5-11.0) L 06/29/18 06:00 RBC 3.53 10^6/uL (3.5-6.1) 06/29/18 06:00 Hgb 10.8 g/dL (12.0-16.0) L 06/29/18 06:00 Hct 33.5 % (36.0-48.0) L 06/29/18 06:00 MCV 94.9 fl (80.0-105.0) 06/29/18 06:00 MCH 30.6 pg (25.0-35.0) 06/29/18 06:00 MCHC 32.2 g/dl (31.0-37.0) 06/29/18 06:00 RDW 12.2 % (11.5-14.5) 06/29/18 06:00 Plt Count 186 10^3/uL (120.0-450.0) 06/29/18 06:00 MPV 9.3 fl (7.0-11.0) 06/29/18 06:00 Neut % (Auto) 20.2 % (50.0-68.0) L 06/29/18 06:00 Lymph % (Auto) 67.0 % (22.0-35.0) H 06/29/18 06:00 Gregory % (Auto) 9.6 % (1.0-6.0) H 06/29/18 06:00 Eos % (Auto) 2.7 % (1.5-5.0) 06/29/18 06:00 Baso % (Auto) 0.5 % (0.0-3.0) 06/29/18 06:00 Lymph # (Auto) 2.4 (1.2-3.4) 06/29/18 06:00 Gregory # (Auto) 0.4 (0.1-0.6) 06/29/18 06:00 Eos # (Auto) 0.1 (0.0-0.7) 06/29/18 06:00 Baso # (Auto) 0.02 K/mm3 (0.0-2.0) 06/29/18 06:00 Absolute Neuts (auto) 0.73 (1.4-6.5) L 06/29/18 06:00 PT 12.4 SECONDS (9.4-12.5) 06/27/18 15:48 INR 1.12 06/27/18 15:48 APTT 36.1 Seconds (26.9-38.3) 06/27/18 15:48 Sodium 138 mmol/L (132-148) 06/29/18 06:00 Potassium 4.5 mmol/L (3.6-5.0) 06/29/18 06:00 Chloride 106 mmol/L (98-107) 06/29/18 06:00 Carbon Dioxide 27 mmol/L (21-33) 06/29/18 06:00 Anion Gap 9 (10-20) L 06/29/18 06:00 BUN 7 mg/dL (7-21) 06/29/18 06:00 Creatinine 0.7 mg/dl (0.7-1.2) 06/29/18 06:00 Est GFR ( Amer) > 60 06/29/18 06:00 Est GFR (Non-Af Amer) > 60 06/29/18 06:00 POC Glucose (mg/dL) 98 mg/dL (65-110) 06/29/18 15:32 Random Glucose 65 mg/dL (70-110) L 06/29/18 06:00 Hemoglobin A1c 5.1 % (4.2-6.5) 06/27/18 15:48 Calcium 8.2 mg/dL (8.4-10.5) L 06/29/18 06:00 Total Bilirubin 0.3 mg/dL (0.2-1.3) 06/29/18 06:00 AST 21 U/L (14-36) 06/29/18 06:00 ALT 15 U/L (7-56) 06/29/18 06:00 Alkaline Phosphatase 37 U/L (38-126) L 06/29/18 06:00 Troponin I < 0.01 ng/mL 06/27/18 15:48 Total Protein 6.3 g/dL (5.8-8.3) 06/29/18 06:00 Albumin 3.4 g/dL (3.0-4.8) 06/29/18 06:00 Globulin 2.9 gm/dL 06/29/18 06:00 Albumin/Globulin Ratio 1.2 (1.1-1.8) 06/29/18 06:00 Triglycerides 117 mg/dL (35-160) 06/27/18 15:48 Cholesterol 164 mg/dL (130-200) 06/27/18 15:48 LDL Cholesterol Direct 93 mg/dL (0-129) 06/27/18 15:48 HDL Cholesterol 57 mg/dL (29-60) 06/27/18 15:48 Vitamin B12 469 pg/mL (239-931) 06/28/18 06:10 Folate > 20.0 ng/mL 06/28/18 06:10 Free T4 1.24 ng/dL (0.78-2.19) 06/28/18 06:10 TSH 3rd Generation 3.62 mIU/mL (0.46-4.68) 06/28/18 06:10 Blood Type O POSITIVE 06/28/18 06:10 Blood Type Confirm O POSITIVE 06/28/18 07:30 Antibody Screen Negative 06/28/18 06:10 BBK History Checked No verified bt 06/28/18 06:10 - Hospital Course Hospital Course: Upon Admission: 42 year old female with a past medical history of anxiety, depression, chronic neck and back pain presenting with left arm weakness that started this afternoon while she was sitting at home. She reports that this has happened before months ago and spontaneously resolved. She notes a history of chronic neck issues without previous surgery. Patient denies any trauma, fall, or neck injury. Patient further denies any fevers, chills, headache, dizziness, blurry vision, changes in vision or hearing, chest pain, shortness of breath, dyspnea on ex ertion, cough, diaphoresis, abdominal pain, nausea, vomiting, diarrhea, back pain, neck pain, or urinary symptoms. Patient was a code stroke in the ED. Hospital Course: Code stroke was called in ED. CT results were negative. All diagnostics tests were negative for the clinical presentation. Lipid panel returned within normal limits. Pt was evaluated by neurology & psychiatry for symptoms. Per neuro, differentials included "psychogenic weakness, conversion disoder, malingering, or left shoulder dysfunction." Pt was deemed medically stable from neurologic standpoint. Pt was evaluated by psychiatry and was given detailed information regarding outpatient clinics. She was not suicidal, posing a danger to self or others. Pt symptoms had begun to resolve on day of discharge. She was moving her L arm and L leg, with sensation intact. Upon Discharge: Pt is feeling better. Her symptoms have begun to resolve, and she is able to move her L hand. VSS, labs wnl, imaging stable. She was given detailed instructions about medication compliance, outpatient followup with specialists and to return to ED if she experiences new symptoms or symptoms returned. She was given detailed instruction to follow up in the outpatient setting with her sueding machine tender who she was seeing previously. The results of her echocardiogram were faxed to her cardiologists office. She was also instructed to follow up with her psychiatrist and neurologist. She expressed agreement to all instructions. MRI Brain 06/28/18: No acute intracranial findings Cervical spine MRI 06/28/18: Small central disc protrusion at C6-7. Unchanged Echo: Normal chamber size. Mild LV dysfunction with global hypokinesis. Mild tricuspid regurgitation. No obvious cardiac source of embolus noted. If clinical suspicion is high, consider transesophageal echocardiography. Chest Xray 06/27/18: No active disease. Cervical Spine CT w/o contrast 06/27/18: No significant or acute findings to account for/ related to the clinical presentation.No significant interval change compared to the prior examination(s). CT head w/o contrast 06/27/18: No acute findings EKG: NSR, HR@78 Discharge Exam - Head Exam Head Exam: ATRAUMATIC, NORMOCEPHALIC - Eye Exam Eye Exam: EOMI, Normal appearance - ENT Exam ENT Exam: Mucous Membranes Moist, Normal Exam - Neck Exam Neck exam: Normal Inspection - Respiratory Exam Respiratory Exam: NORMAL BREATHING PATTERN, UNREMARKABLE - Cardiovascular Exam Cardiovascular Exam: REGULAR RHYTHM, +S1, +S2 - GI/Abdominal Exam GI & Abdominal Exam: Normal Bowel Sounds, Unremarkable - Extremities Exam Extremities exam: normal inspection - Back Exam Back exam: NORMAL INSPECTION - Neurological Exam Neurological exam: Alert, Oriented x3 Additional comments: Sensation intact bilaterally. LUE 3/5 strength to flexion/extension. Pt moves hand away from face on arm drop malingering test - Psychiatric Exam Psychiatric exam: Depressed, Normal Affect, Normal Mood - Skin Skin Exam: Dry, Intact, Warm Discharge Plan - Discharge Medications Prescriptions: Aspirin [Ecotrin] 81 mg PO DAILY #14 tabec - Follow Up Plan Condition: STABLE Disposition: HOME/ ROUTINE Instructions: Depression (DC), Generalized Anxiety Disorder (DC) Additional Instructions: Please follow up with your primary care doctor within 3-5 days of discharge from the hospital Please follow up with your sueding machine tender at [facility] within 1-week of discharge from the hospital. Please discuss your echocardiogram findings while you were in the hospital The results of your echocardiogram have been faxed to [facility] Please follow up with your neurologist within 1 week of discharge from the hospital Please follow up with your psychiatrist within 1 week of discharge from the hospital Please continue the medications that you were taking at home. Please start taking Aspirin 81mg every day. A prescription has been given to you upon discharge Please discuss your medications all your medications with all of your doctors If your symptoms return or you experience any new symptoms, please return to the nearest emergency room Referrals: [facility] [Provider Group] Kirsty Davidson MD [Primary Care Provider] - <Ke Mcneill - Last Filed: 07/02/18 14:51> Provider - Provider Date of Admission: 06/27/18 17:06 Attending physician: Frederick Rolle MD Primary care physician: Kirsty Davidson MD Consults: 06/27/18 15:20 Stroke Team Consult Stat Comment: Consulting Provider: Neurohospitalist Consulting Physician: NEUROHOSP Neurohospitalist for Consult: Virgil Shaver Neurohospitalist for Consult: Jmai Toribio Reason for Consult: L arm weak 06/27/18 19:56 Physician Consult Routine Comment: Consulting Provider: Jami Toribio Consulting Physician: Jami Toribio Reason for Consult: R/o CVA vs MS 06/28/18 14:42 Physician Consult Routine Comment: Consulting Provider: Ginger Gilmore Consulting Physician: Ginger Gilmore Reason for Consult: hx of anxiety/depression Hospital Course - Lab Results Lab Results: Most Recent Lab Values WBC 3.6 10^3/uL (4.5-11.0) L 06/29/18 06:00 RBC 3.53 10^6/uL (3.5-6.1) 06/29/18 06:00 Hgb 10.8 g/dL (12.0-16.0) L 06/29/18 06:00 Hct 33.5 % (36.0-48.0) L 06/29/18 06:00 MCV 94.9 fl (80.0-105.0) 06/29/18 06:00 MCH 30.6 pg (25.0-35.0) 06/29/18 06:00 MCHC 32.2 g/dl (31.0-37.0) 06/29/18 06:00 RDW 12.2 % (11.5-14.5) 06/29/18 06:00 Plt Count 186 10^3/uL (120.0-450.0) 06/29/18 06:00 MPV 9.3 fl (7.0-11.0) 06/29/18 06:00 Neut % (Auto) 20.2 % (50.0-68.0) L 06/29/18 06:00 Lymph % (Auto) 67.0 % (22.0-35.0) H 06/29/18 06:00 Gregory % (Auto) 9.6 % (1.0-6.0) H 06/29/18 06:00 Eos % (Auto) 2.7 % (1.5-5.0) 06/29/18 06:00 Baso % (Auto) 0.5 % (0.0-3.0) 06/29/18 06:00 Lymph # (Auto) 2.4 (1.2-3.4) 06/29/18 06:00 Gregory # (Auto) 0.4 (0.1-0.6) 06/29/18 06:00 Eos # (Auto) 0.1 (0.0-0.7) 06/29/18 06:00 Baso # (Auto) 0.02 K/mm3 (0.0-2.0) 06/29/18 06:00 Absolute Neuts (auto) 0.73 (1.4-6.5) L 06/29/18 06:00 PT 12.4 SECONDS (9.4-12.5) 06/27/18 15:48 INR 1.12 06/27/18 15:48 APTT 36.1 Seconds (26.9-38.3) 06/27/18 15:48 Sodium 138 mmol/L (132-148) 06/29/18 06:00 Potassium 4.5 mmol/L (3.6-5.0) 06/29/18 06:00 Chloride 106 mmol/L (98-107) 06/29/18 06:00 Carbon Dioxide 27 mmol/L (21-33) 06/29/18 06:00 Anion Gap 9 (10-20) L 06/29/18 06:00 BUN 7 mg/dL (7-21) 06/29/18 06:00 Creatinine 0.7 mg/dl (0.7-1.2) 06/29/18 06:00 Est GFR ( Amer) > 60 06/29/18 06:00 Est GFR (Non-Af Amer) > 60 06/29/18 06:00 POC Glucose (mg/dL) 98 mg/dL (65-110) 06/29/18 15:32 Random Glucose 65 mg/dL (70-110) L 06/29/18 06:00 Hemoglobin A1c 5.1 % (4.2-6.5) 06/27/18 15:48 Calcium 8.2 mg/dL (8.4-10.5) L 06/29/18 06:00 Total Bilirubin 0.3 mg/dL (0.2-1.3) 06/29/18 06:00 AST 21 U/L (14-36) 06/29/18 06:00 ALT 15 U/L (7-56) 06/29/18 06:00 Alkaline Phosphatase 37 U/L (38-126) L 06/29/18 06:00 Troponin I < 0.01 ng/mL 06/27/18 15:48 Total Protein 6.3 g/dL (5.8-8.3) 06/29/18 06:00 Albumin 3.4 g/dL (3.0-4.8) 06/29/18 06:00 Globulin 2.9 gm/dL 06/29/18 06:00 Albumin/Globulin Ratio 1.2 (1.1-1.8) 06/29/18 06:00 Triglycerides 117 mg/dL (35-160) 06/27/18 15:48 Cholesterol 164 mg/dL (130-200) 06/27/18 15:48 LDL Cholesterol Direct 93 mg/dL (0-129) 06/27/18 15:48 HDL Cholesterol 57 mg/dL (29-60) 06/27/18 15:48 Vitamin B12 469 pg/mL (239-931) 06/28/18 06:10 Folate > 20.0 ng/mL 06/28/18 06:10 Free T4 1.24 ng/dL (0.78-2.19) 06/28/18 06:10 TSH 3rd Generation 3.62 mIU/mL (0.46-4.68) 06/28/18 06:10 Blood Type O POSITIVE 06/28/18 06:10 Blood Type Confirm O POSITIVE 06/28/18 07:30 Antibody Screen Negative 06/28/18 06:10 BBK History Checked No verified bt 06/28/18 06:10 Attending/Attestation - Attestation I have personally seen and examined this patient.: Yes I have fully participated in the care of the patient.: Yes Notes (Text): 07/02/18 14:41 42 year old female with PMH of anxiety, depression, chronic neck and back pain presenting with left arm weakness that started this afternoon while she was sitting at home. CT head of head was negative for acute infarct or intra cranial bleeding , CT C spine shows small disk pertussion at C6-7 which is unchanged . MRI of Brain is unremarkable. Patient was evaluated by Neurology and Psychiatry and was cleared for discharge.Patient will need out patient physical therapy and close follow up with Psychiatry and Neurology. Management plan was discussed in detail with patient. Education was provided. 07/02/18 14:51
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
== END 2018-06-29 19:05 | disposition home or self-care (01) ==
LOC: ED 13:51 → ERH 17:06 → 3RNO 19:18
PROVIDERS: ADMIT Internal Medicine; ATTEND Internal Medicine
DX: F45.9 Somatoform disorder, unspecified (principal); G81.94 Hemiplegia, unspecified affecting left nondominant side; M50.123 Cervical disc disorder at C6-C7 level with radiculopathy; I07.1 Rheumatic tricuspid insufficiency; F41.9 Anxiety disorder, unspecified; F32.89 Other specified depressive episodes; R29.701 NIHSS score 1; Z82.49 Family history of ischemic heart disease and other diseases of the circulatory system; Z83.3 Family history of diabetes mellitus
CPT/HCPCS: 36415; 70450; 70551; 71045; 72125; 72141; 80053; 80061; 82607; 82746; 82948; 83036; 84439; 84443; 84484; 85025; 85610; 85730; 86850; 86900; 93005; 93306; 96372; 99285; G0378; J1644; J7030